=== PATIENT | female | born 1960 | race Hispanic/Latino ===

== ENCOUNTER 2020-04-20 12:35 | Emergency (ER) | payer SELFPAY ==
[~2020-04-20] VITALS: Ht 154.9 cm; Wt 68.0 kg
[~2020-04-20 12:35] MED LIST: ASPIR 8181 MG PO; FUROSEMIDE40 MG PO; KLOR-CON M2020 MEQ PO; METOPROLOL SUC100 MG PO; SIMVASTATIN40 MG PO
--- NOTE | 2020-04-20 12:59 | Emergency Department Note ---
History of Present Illnes History of Present Illness Chief Complaint: COVID PUI History of Present Illness This is a 59 year old female 59 Y/O FEMALE PRESENTS TO ED WITH C/O SOB, FEVER, CHILLS AND COUGH X 2 DAYS, LOSS OF TASTE SINCE LAST NIGHT. PT TESTED FOR COVID 2 DAYS AGO - RESULTS PENDING. SATS 99% ON RA. Historian: Patient Arrival Mode: Car English Teacher Required: No Onset (how long ago): day(s) (2) Severity: mild Onset quality: gradual Timing of current episode: constant Progression: waxing and waning Chronicity: new Context: Denies recent illness Relieving factors: none Exacerbating factors: none Associated symptoms: Reports cough, Reports fever/chills, Reports loss of appetite, Reports shortness of breath Past Medical/Family History Physician Review I have reviewed the patient's past medical and family history. Any updates have been documented here. Past Medical History Recent Fever: Yes Clinical Suspicion of Infectio: No New/Unexplained Change in Ment: No Other Medical History: HIGH CHOLESTEROL Past Surgical History: None Social History Smoking Cessation: Never Smoker Counseling Performed: No Alcohol Use: None Any Illegal Drug Use: No TB Exposure/Symptoms: No Physically hurt or threatened: No Family History Family history of heart diseas: No Other Last Tetanus: UNK Any Pre-Existing Lines (PICC,: No Review of Systems Review of Systems Constitutional: Reports as per HPI EENTM: Reports no symptoms Cardiovascular: Reports no symptoms Respiratory: Reports as per HPI Gastrointestinal: Reports no symptoms Genitourinary: Reports no symptoms Musculoskeletal: Reports no symptoms Integumentary: Reports no symptoms Neurological: Reports no symptoms Psychological: Reports no symptoms Endocrine: Reports no symptoms Hematological/Lymphatic: Reports no symptoms Physical Exam Related Data Allergies: Coded Allergies: No Known Allergies (Unverified , 02/07/14) Triage Vital Signs Vital Signs Date Time Temp Pulse Resp B/P (MAP) Pulse Ox O2 Delivery O2 Flow Rate FiO2 04/20/20 12:49 100.1 90 24 118/86 98 Room Air Vital signs reviewed: Yes Physical Exam CONSTITUTIONAL Constitutional: Present well-developed, Present well-nourished HENT HENT: Present normocephalic, Present atraumatic, Present oropharynx clear/moist, Present nose normal HENT L/R: Present left ext ear normal, Present right ext ear normal EYES Eyes: Reports PERRL, Reports conjunctivae normal NECK Neck: Present ROM normal PULMONARY Pulmonary: Present effort normal, Present breath sounds normal CARDIOVASCULAR Cardiovascular: Present regular rhythm, Present heart sounds normal, Present capillary refill normal, Present normal rate GASTROINTESTINAL Abdominal: Present soft, Present nontender, Present bowel sounds normal GENITOURINARY Genitourinary: Present exam deferred SKIN Skin: Present warm, Present dry MUSCULOSKELETAL Musculoskeletal: Present ROM normal NEUROLOGICAL Neurological: Present alert, Present oriented x 3, Present no gross motor or sensory deficits PSYCHOLOGICAL Psychological: Present mood/affect normal, Present judgement normal Assessment & Plan Medical Decision Making MDM PT IN NO DISTRESS, SX'S C/W COVID19 AND O2 SAT NORMAL EVEN WITH EXERCISE Reassessment Reassessment YOU ARE BEING DISCHARGED WITH DIAGNOSIS OF VIRAL SYNDROME AND SUSPECT COVID 19 INFECTION. SELF QUARANTINE FOR THE NEXT 14 DAYS. TYLENOL FOR FEVER, TAKE PRESCRIPTIONS DIRECTED. RETURN TO ER FOR ANY CONCERNS OR ISSUES, RETURN TO ER IF YOU BECOME SHORT OF BREATH ESPECIALLY IF IT OCCURS WITH JUST TALKING. WHEN RESTING TRY TO LAY ON YOUR SIDE AND NOT YOUR BACK, ROTATE FROM SIDE TO SIDE EVERY 2 TO 3 HOURS. Assessment & Plan Final Impression: (1) Viral syndrome Depart Disposition: HOME, SELF-CARE Last Vital Signs Date Time Temp Pulse Resp B/P (MAP) Pulse Ox O2 Delivery O2 Flow Rate FiO2 04/20/20 12:49 100.1 90 24 118/86 98 Room Air Home Meds Reported Medications Furosemide (FUROSEMIDE) 40 Mg Tablet, 40 MG PO BID 02/07/14 Simvastatin (SIMVASTATIN) 40 Mg Tablet, 40 MG PO DAILY 02/07/14 Metoprolol Succinate (METOPROLOL SUCCINATE) 100 Mg Tab.er.24h, 100 MG PO DAILY 02/07/14 Potassium Chloride (KLOR-CON M20) 20 Meq Tabcr, 20 MEQ PO BID 02/07/14 Aspirin (ASPIR 81) 81 Mg Tablet.dr, 81 MG PO DAILY 02/07/14 DOUGLAS SHI MD Apr 20, 2020 12:59
== END 2020-04-20 12:55 | disposition home or self-care (01) ==
LOC: ER 12:49
DX: B34.9 Viral infection, unspecified (principal); R50.9 Fever, unspecified; R05 Cough; R06.02 Shortness of breath; E78.00 Pure hypercholesterolemia, unspecified
CPT/HCPCS: 99283